=== PATIENT | female | born 1975 | race Hispanic/Latino ===

== ENCOUNTER 2018-08-18 18:48 | Observation (INO) | payer OTHER ==
[2018-08-18] MEDS ORDERED: Sodium Chloride 0.9% 1,000 ML IV ONE (19:33)
--- NOTE | 2018-08-18 19:33 | C.PDOC ---
History Of Present Illness 43 year old female presents to the ED c/o worsening chest discomfort since yesterday. Patient c/o on and off palpitations, mild chest pain. Patient also c/o dizziness and lightheadedness. Patient denies LOC, visual changes, neck pain , nausea, vomit, rash, SOB, weakness, numbness, injury, fall, trauma. Chief Complaint (Nursing): Weakness/Neurological Deficit History Per: Patient History/Exam Limitations: no limitations Onset/Duration Of Symptoms: Days Current Symptoms Are (Timing): Worse Associated Symptoms Preceding Syncopal Episode: Lightheadedness Seizure Or Post-ictal Symptoms: None Fall Associated With With Symptoms: No Severity: None Recent travel outside of the [place]: No Additional History Per: Patient Past Medical History Reviewed: Historical Data, Nursing Documentation, Vital Signs Vital Signs: Last Vital Signs Temp 97.9 F 08/18/18 19:28 Pulse 98 H 08/18/18 19:28 Resp 18 08/18/18 19:28 BP 174/93 H 08/18/18 19:28 Pulse Ox 98 08/18/18 19:28 - Medical History PMH: Anemia, Hypothyroidism Surgical History: No Surg Hx Family History: States: Unknown Family Hx - Social History Hx Alcohol Use: Yes Hx Substance Use: No - Immunization History Hx Tetanus Toxoid Vaccination: (unknown) Hx Influenza Vaccination: Yes Hx Pneumococcal Vaccination: No Review Of Systems Constitutional: Negative for: Fever, Chills Eyes: Negative for: Vision Change Cardiovascular: Positive for: Chest Pain, Palpitations Respiratory: Negative for: Cough, Shortness of Breath Gastrointestinal: Negative for: Nausea, Vomiting, Abdominal Pain Musculoskeletal: Negative for: Neck Pain Skin: Negative for: Rash Neurological: Positive for: Dizziness. Negative for: Weakness, Numbness, Headache Physical Exam - Physical Exam Appears: Non-toxic, No Acute Distress Skin: Normal Color, Warm, Dry Head: Atraumatic, Normacephalic Eye(s): bilateral: Normal Inspection, PERRL, EOMI Oral Mucosa: Moist Neck: Normal ROM, No Midline Cervical Tenderness, Supple Chest: Symmetrical Cardiovascular: Rhythm Regular Respiratory: Normal Breath Sounds, No Rales, No Rhonchi, No Wheezing Gastrointestinal/Abdominal: Soft, No Tenderness, No Distention Extremity: Normal ROM, No Tenderness, No Swelling Neurological/Psych: Oriented x3, Normal Speech, Normal Cognition, Other (no focal deficit) Gait: Steady ED Course And Treatment - Laboratory Results Result Diagrams: 08/18/18 19:41 08/18/18 19:41 O2 Sat by Pulse Oximetry: 98 (ON RA) Pulse Ox Interpretation: Normal - CT Scan/US CT head Other Rad Studies (CT/US): Read By Radiologist, Radiology Report Reviewed CT/US Interpretation: EXAM: CT Head Without IV contrast. CLINICAL HISTORY: Lightheadedness numbness of upper arm. TECHNIQUE: Axial computed tomography images of the head/brain without intravenous contrast. COMPARISON: None provided. FINDINGS: BRAIN: No acute intraparenchymal hemorrhage. No mass lesion. No CT evidence for acute territorial infarct. No midline shift or extra- axial collections. VENTRICLES: No hydrocephalus. ORBITS: The orbits are unremarkable. SINUSES AND MASTOIDS: The paranasal sinuses and mastoid air cells are clear. BONES: No fracture. SOFT TISSUES: Unremarkable. IMPRESSION: No acute intracranial abnormality. . Electronically signed on August 18, 2018 8:46:52 PM EDT by: Reji Penny M.D., M.B.A., Certified By [employer]. Fellowship Trained MRI and CT Specialist. Medical Decision Making Medical Decision Making: Plan: * CT head * EKG * Labs * CXR * IV fluids While in CT scan patient has another near syncopla episode, patient described it has palpitations and sweatiness. No focal deficits. Disposition Discussed With DrSamantha: Albert Carmona Doctor Will See Patient In The: Hospital Counseled Patient/Family Regarding: Diagnosis - Disposition Disposition: HOSPITALIZED Disposition Time: 21:16 Condition: STABLE Forms: [facility] (Tanzanian) - POA Present On Arrival: None - Clinical Impression Clinical Impression: Near syncope - Scribe Statement The provider has reviewed the documentation as recorded by the Scribe Samson Jeronimo All medical record entries made by the Scribe were at my direction and personally dictated by me. I have reviewed the chart and agree that the record accurately reflects my personal performance of the history, physical exam, medical decision making, and the department course for this patient. I have also personally directed, reviewed, and agree with the discharge instructions and disposition.
[2018-08-18 19:44] LABS: BASO # 0.1 K/uL (0.0-0.2); BASO % 0.6 % (0.0-2.0); EOS # 0.2 K/uL (0.0-0.7); EOS % 1.5 % (0.0-4.0); HEMOGLOBIN 10.4 g/dL (11.0-16.0); LYMPH # 2.6 K/uL (1.0-4.3); MEAN CELL VOLUME 78.2 fL (81.0-99.0); MEAN CORPUSCULAR HEMOGLOBIN 25.7 pg (27.0-31.0); MEAN CORPUSCULAR HGB CONC 32.8 g/dL (33.0-37.0); MEAN PLATELET VOLUME 7.6 fL (7.2-11.7); MONO # 0.5 K/uL (0.0-0.8); MONO % 4.8 % (0.0-10.0); NEUT # 7.1 K/uL (1.8-7.0); NEUT % 68.1 % (50.0-75.0); NRBC % 0.1 % (0.0-2.0); RBC 4.05 Mil/uL (3.80-5.20); RED CELL DISTRIBUTION WIDTH 15.4 % (11.5-14.5); WHITE BLOOD COUNT 10.4 K/uL (4.8-10.8)
[2018-08-18 19:59] LABS: ALB/GLOB RATIO 1.3 (1.0-2.1); ALBUMIN 4.5 g/dL (3.5-5.0); ALT/SGPT 24 U/L (9-52); AST/SGOT 23 U/L (14-36); BLOOD UREA NITROGEN 15 mg/dL (7-17); CALCIUM 9.7 mg/dl (8.6-10.4); GFR NON-AFRICAN AMERICAN > 60
[2018-08-18 20:28] LABS: T3 2.31 nmol/L (1.49-2.60)
--- NOTE | 2018-08-18 21:04 | PCM.RRT ---
BASE MANAGER Nurses Assessment - Situation Date: 08/18/18 Time BASE MANAGER was called: 20:41 BASE MANAGER Responder Arrival Time:: 20:41 BASE MANAGER Location:: CT BASE MANAGER Called By: Other Disciplines - IV IV Inserted during BASE MANAGER?: No - Respiratory BASE MANAGER Delivery Method: Room Air - Diagnostic Test Ordered EKG: No (ordered in ED) Chest X-Ray: No (ordered in ED) CT Scan: No (completed CT Head shows no intracranial abnormality) CPR started during BASE MANAGER?: No - Vital Signs Vital Signs: BP 178/105 HR 100 - Zina Coma Scale Coma Scale Eye Opening: Spontaneous Coma Scale Motor: Obeys Commands Movement Coma Scale Verbal: Oriented Coma Scale Total: 15 - Vital Signs at end of BASE MANAGER Vital Signs at end of BASE MANAGER: BP 169/106 - Recommendations 5) BASE MANAGER Level of Care Recommendations: Discharge to Emergency Room I.Reason for BASE MANAGER - A) Acute Change in Patient: (Select all that apply): Staff member or family is worried about patient Subjective: Patient reported return of symptoms that prompted her ED visit including dizziness, palpitations, difficulty breathing, tingling and weakness to left side. Patient is s/p CT head and while sitting in hallway in wheelchair reported complaints. BASE MANAGER called by staff. No reported syncopal event/LOC. Upon arrival patient was sitting in chair with rapid shallow breathing. VS revealed BP elevated @ 178/105. After further discussion patient reported improvement in breathing, decreased palpitations, and improvement in dizziness. - Neurological Status (Select all that apply): Alert, Responsive, Oriented, Verbal, Follows Commands - Respiratory Oxygen Delivery Method: Room Air - Constitutional Appears: Non-toxic, No Acute Distress - Head Head Exam: ATRAUMATIC, NORMAL INSPECTION, NORMOCEPHALIC - Eyes Eye Exam: EOMI, Normal appearance. absent: Nystagmus - Respiratory Exam Respiratory Exam: absent: Accessory Muscle Use, Respiratory Distress Additional comments: tachypneic - Cardiovascular Exam Cardiovascular Exam: Tachycardia, REGULAR RHYTHM - GI/Abdominal Exam GI & Abdominal Exam: Soft. absent: Distended - Neurological Exam Neurological Exam: Alert, Awake, Oriented x3 Additional exam: Patient appears anxious AAO x3 no facial droop speech normal 5/5 muscle strength UE/LE - Extremities Exam Extremities Exam: Normal Inspection. absent: Pedal Edema Plan - Assessment of Findings&Treatment Plan 43 year old female presenting to ED for evaluation of dizziness, palpitations, weakness and tingling; s/p BASE MANAGER for complaints of same symptoms after getting CT head -Hypertensive @ 178/105 -CT head: no intracranial abnormality -EKG and CXR performed in ED -patient reporting symptomatic improvement at BASE MANAGER end -stable for return to ED for further workup Discussed with Dr. Ortiz -Eneida Carrizales, PGY-1
--- NOTE | 2018-08-19 07:06 | CT ---
Date of service: 08/18/2018 PROCEDURE: CT HEAD WITHOUT CONTRAST. HISTORY: Lightness of head. Upper extremity numbness. COMPARISON: None available. TECHNIQUE: Axial computed tomography images were obtained through the head/brain without intravenous contrast. Radiation dose: Total exam DLP = 988.86 mGy-cm. This CT exam was performed using one or more of the following dose reduction techniques: Automated exposure control, adjustment of the mA and/or kV according to patient size, and/or use of iterative reconstruction technique. FINDINGS: HEMORRHAGE: No intracranial hemorrhage. BRAIN: No mass effect or edema. No atrophy or chronic microvascular ischemic changes. Punctate hypodensity in the right basal ganglia may represent a prominent perivascular space. Left basal ganglia calcification. VENTRICLES: Unremarkable. No hydrocephalus. CALVARIUM: Unremarkable. PARANASAL SINUSES: Unremarkable as visualized. No significant inflammatory changes. MASTOID AIR CELLS: Unremarkable as visualized. No inflammatory changes. OTHER FINDINGS: None. IMPRESSION: No acute intracranial abnormality. If symptoms persists, consider correlation with MRI. A preliminary report was generated at 8:46 p.m. on 08/18/[address] Reji Penny from [employer].
[2018-08-19] MEDS ORDERED: Potassium Chloride 20 mEq/15 ml LIQ UD PO ONE (08:30)
[2018-08-19] MEDS: Levothyroxine 75 MCG TAB PO SCH (09:21)
[2018-08-19] MEDS: Pantoprazole 40 mg EC Tab PO SCH (09:21)
[2018-08-19] MEDS ORDERED: Pneumococcal 23-Valent Vaccine IM ONE (10:00)
[2018-08-19] MEDS ORDERED: CONJUGATED ESTROGENS 1.25 MG PO SCH (10:00)
--- NOTE | 2018-08-19 10:41 | CP.PCM.CON ---
History of Present Illness - History of Present Illness History of Present Illness: PGY-1 Neurology consult note for Dr Pond Patient is a 43 year old female with pmhx of unspecified arrhythmia, hypothyroidism, pituitary microadenoma, borderline ovarian cancer s/p total hysterectomy, presents to the ED yesterday for near syncope. [place] she felt winded with flushed sensation on left side of her face, as well as tingling and numbness in her left arm and forearm, later extending to both arms and both legs. As the time progressed, patient started having chest tightness, palpitations, headaches, blurry vision, and continuing tingling and numbness including around lip area. Admits to sensation of doom. Patient states she has history of arrhythmia and often feels as her heart skips beats. Patient denies dizziness, syncope, fall or trauma to head or any side of the body. Patient had another episode of dizziness, palpitation, weakness and tingling after patient had a head CT, but shortly symptoms resolved. Patient states the tingling has improved, however, still feels tingling/numbness on both hands. Patient's dizziness, headaches, blurry vision, chest tightness has resolved. Denies fever, chills, chest pain, sob, hearing or speech impairment, difficulty with balance or ambulation, denies difficulty swallowing. 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 MedS: synthroid, hormonal therapy Past Patient History - Past Social History Smoking Status: Never Smoked - CARDIAC Other/Comment: arrhythmia - PULMONARY Hx Respiratory Disorders: No - ENDOCRINE/METABOLIC Hx Hypothyroidism: Yes - HEMATOLOGICAL/ONCOLOGICAL Hx Anemia: Yes - PSYCHIATRIC Hx Substance Use: No - SURGICAL HISTORY Hx Hysterectomy: Yes Other/Comment: knee sx - ANESTHESIA Hx Anesthesia: Yes Hx Anesthesia Reactions: No Meds Allergies/Adverse Reactions: Allergies Allergy/AdvReac Type Severity Reaction Status Date / Time No Known Allergies Allergy Verified 08/18/18 19:23 - Medications Medications: Current Medications Estrogens Conjugated (Premarin) 1.25 mg PO DAILY BRIANNE Ferrous Sulfate (Feosol) 325 mg PO DAILY BRIANNE Last Admin: 08/19/18 09:21 Dose: 325 mg Levothyroxine Sodium (Synthroid) 75 mcg PO 0630 [facility] Last Admin: 08/19/18 09:21 Dose: 75 mcg Pantoprazole Sodium (Protonix Ec Tab) 40 mg PO DAILY [facility] Last Admin: 08/19/18 09:21 Dose: 40 mg Physical Exam - Constitutional Appears: Non-toxic, No Acute Distress - Head Exam Head Exam: ATRAUMATIC, NORMAL INSPECTION, NORMOCEPHALIC - Eye Exam Eye Exam: EOMI, Normal appearance, PERRL Pupil Exam: NORMAL ACCOMODATION - ENT Exam ENT Exam: Mucous Membranes Moist, Normal Exam - Respiratory Exam Respiratory Exam: NORMAL BREATHING PATTERN - Extremities Exam Extremities exam: Positive for: full ROM - Neurological Exam Neurological exam: Alert, CN II-XII Intact, Normal Gait, Oriented x3, Reflexes Normal - Expanded Neurological Exam Expanded Patient oriented to: person, place, time Speech: Fluid Speech Cranial nerves: EOM's Intact: Normal, Facial Palsey w/Forehead Movement: Normal, Facial Palsey w/o Forehead Movement: Normal, Facial Sensation: Normal, Nystagmus: Normal, Tongue Deviation: Normal Ataxia: No Cerebellar Function: Finger to Nose: Normal, Romberg: Normal Upper motor neuron: Pronator Drift: Normal Sensory exam: Lower Extremity Light Touch: Normal, Upper Extremity Light Touch: Normal Neuro motor strength exam: Left Upper Extremity: 5, Right Upper Extremity: 5, Left Lower Extremity: 5, Right Lower Extremity: 5 DTR: Patellar Left: 2+, Patellar Right: 2+ - Psychiatric Exam Psychiatric exam: Normal Affect, Normal Mood - Skin Skin Exam: Dry, Normal Color Results - Vital Signs Recent Vital Signs: Last Vital Signs Temp 98.1 F 08/19/18 07:00 Pulse 76 08/19/18 07:10 Resp 20 08/19/18 07:00 BP 130/74 08/19/18 07:00 Pulse Ox 98 08/19/18 07:10 - Labs Result Diagrams: 08/18/18 19:41 08/18/18 19:41 Labs: Laboratory Results - last 24 hr 08/18/18 08/18/18 08/18/18 19:41 19:41 19:41 WBC 10.4 RBC 4.05 Hgb 10.4 L Hct 31.6 L MCV 78.2 L MCH 25.7 L MCHC 32.8 L RDW 15.4 H Plt Count 377 MPV 7.6 Neut % (Auto) 68.1 Lymph % (Auto) 25.0 Mcpherson % (Auto) 4.8 Eos % (Auto) 1.5 Baso % (Auto) 0.6 Neut # (Auto) 7.1 H Lymph # (Auto) 2.6 Mcpherson # (Auto) 0.5 Eos # (Auto) 0.2 Baso # (Auto) 0.1 D-Dimer, Quantitative < 200 Sodium 138 Potassium 3.5 L Chloride 99 Carbon Dioxide 24 Anion Gap 19 BUN 15 Creatinine 0.8 Est GFR ( Amer) > 60 Est GFR (Non-Af Amer) > 60 Random Glucose 92 Calcium 9.7 Total Bilirubin 0.3 AST 23 ALT 24 Alkaline Phosphatase 78 Troponin I < 0.0120 Total Protein 7.9 Albumin 4.5 Globulin 3.4 Albumin/Globulin Ratio 1.3 Free T4 Total T3 2.31 Urine HCG, Qual 08/18/18 08/18/18 19:48 20:37 WBC RBC Hgb Hct MCV MCH MCHC RDW Plt Count MPV Neut % (Auto) Lymph % (Auto) Mcpherson % (Auto) Eos % (Auto) Baso % (Auto) Neut # (Auto) Lymph # (Auto) Mcpherson # (Auto) Eos # (Auto) Baso # (Auto) D-Dimer, Quantitative Sodium Potassium Chloride Carbon Dioxide Anion Gap BUN Creatinine Est GFR ( Amer) Est GFR (Non-Af Amer) Random Glucose Calcium Total Bilirubin AST ALT Alkaline Phosphatase Troponin I Total Protein Albumin Globulin Albumin/Globulin Ratio Free T4 1.00 Total T3 Urine HCG, Qual Negative Assessment & Plan - Assessment and Plan (Free Text) Plan: Patient is 43 year old female presenting with near syncope with tingling/numbness left arm, radiating to right arm and bilateral leg, symptoms resolved at this time. CT head shows no intracranial abnormalities. thyroid panel within normal limits. Echo pending. Symptoms possibly related to anxiety/panic attacks, however will order brain MRI to r/o acute CVA. 1. Brain MRI w/o contrast 2. ordered Lipid panel, B12, B6, folate, vitamin D 3. continue management as per cardio and primary team Plan d/w Dr Dejah Mcfadden, PGY-1 - Date & Time Date: 08/19/18 Time: 10:00
--- NOTE | 2018-08-19 11:54 | CARD ---
APPROVED REPORT Date of service: 08/18/2018 EKG Measurement Heart [id number] <Conclusion> Normal sinus rhythm Minimal voltage criteria for LVH, may be normal variant Possible Inferior infarct, age undetermined Abnormal ECG
--- NOTE | 2018-08-19 12:14 | RAD ---
Date of service: 08/18/2018 HISTORY: chest pain COMPARISON: No prior. TECHNIQUE: Chest PA and lateral views FINDINGS: LUNGS: No active pulmonary disease. PLEURA: No significant pleural effusion identified. No pneumothorax apparent. CARDIOVASCULAR: No aortic atherosclerotic calcification present. Normal cardiac size. No pulmonary vascular congestion. OSSEOUS STRUCTURES: No significant abnormalities. VISUALIZED UPPER ABDOMEN: Normal. OTHER FINDINGS: None. IMPRESSION: No active disease.
[2018-08-19] MEDS ORDERED: Iodixanol 320 MG/ML 100 ML BOTTLE IV ONE (14:12)
--- NOTE | 2018-08-19 16:00 | CT ---
Date of service: 08/19/2018 PROCEDURE: CT Chest with contrast (Pulmonary Angiogram) HISTORY: Near syncopal event. Pulmonary embolism suspected. Negative test (concurrent with this examination). COMPARISON: None available. TECHNIQUE: Axial computed tomography images were obtained of the chest in the pulmonary arterial phase of enhancement. Coronal and sagittal reformatted images were created and reviewed. Intravenous contrast dose: 100 cc Visipaque 320. Mean Hounsfield value in the main pulmonary artery: 125.67 Radiation dose: Total exam DLP = 588.39 mGy-cm. This CT exam was performed using one or more of the following dose reduction techniques: Automated exposure control, adjustment of the mA and/or kV according to patient size, and/or use of iterative reconstruction technique. FINDINGS: PULMONARY ARTERIES: Unremarkable. No pulmonary embolism. AORTA: No acute findings. No thoracic aortic aneurysm. No atherosclerotic calcification or mural plaque present. LUNGS: Unremarkable. No nodule, mass or pulmonary consolidation. PLEURAL SPACES: Unremarkable. No effusion or pneumothorax. HEART: Unremarkable. No cardiomegaly. No significant pericardial effusion. LYMPH NODES: No lymphadenopathy. BONES, CHEST WALL: Unremarkable. No fracture or destructive lesion OTHER FINDINGS: Cholelithiasis without CT evidence of acute cholecystitis. IMPRESSION: Unremarkable CT pulmonary angiogram. No large or central pulmonary embolus.Limitations of the current examination: Poor opacification of the pulmonary arterial system precludes assessment for pulmonary emboli at and beyond the segmental level
--- NOTE | 2018-08-19 17:46 | CARD ---
APPROVED REPORT Date of service: 08/19/2018 EXAM: Two-dimensional and M-mode echocardiogram with Doppler and color Doppler. Other Information Quality : GoodRhythm : INDICATION Dyspnea Chest Pain Syncope Palpitations 2D DIMENSIONS IVSd0.9 (0.7-1.1cm)LVDd4.6 (3.9-5.9cm) PWd0.9 (0.7-1.1cm)LA [id number] (18-58mL) LVDs2.9 (2.5-4.0cm)FS (%) 37.6 % LVEF (%)67.7 (>50%)LVEF (Borrego's)67.64 % M-Mode DIMENSIONS Left Atrium (MM)3.41 (2.5-4.0cm)IVSd0.88 (0.7-1.1cm) Aortic Root3.08 (2.2-3.7cm)LVDd4.48 (4.0-5.6cm) Aortic Cusp Exc.2.21 (1.5-2.0cm)PWd0.70 (0.7-1.1cm) FS (%) 31 %LVDs3.08 (2.0-3.8cm) LVEF (%)59 (>50%) Mitral Valve MV E Jqvtmzck01.5cm/sMV A Hggxtjmt92.6cm/sE/A ratio1.0 TDI Lateral E' Peak V14.24cm/sMedial E' Peak V10.81cm/sE/Lateral E'4.7 E/Medial E'6.2 LEFT VENTRICLE The left ventricle is normal size. There is normal left ventricular wall thickness. Left ventricle systolic function is normal. The Ejection Fraction is 65-70%. There is normal LV segmental wall motion. The left ventricular diastolic function is normal. There is no ventricular septal defect visualized. RIGHT VENTRICLE The right ventricle is normal size. The right ventricular systolic function is normal. ATRIA The left atrium size is normal. The right atrium size is normal. AORTIC VALVE The aortic valve is mildly sclerotic. The aortic valve is tri-cuspid. There is trace aortic regurgitation. There is no aortic valvular stenosis. MITRAL VALVE The mitral valve is normal in structure. There is no evidence of mitral valve prolapse. There is no mitral valve regurgitation noted. TRICUSPID VALVE The tricuspid valve is normal in structure. There is trace tricuspid regurgitation. Right ventricular systolic pressure is estimated at less than 30 mmHg. There is no pulmonary hypertension. PULMONIC VALVE The pulmonic valve is not well visualized. There is trace pulmonic valvular regurgitation. GREAT VESSELS The aortic root is normal in size. The ascending aorta is normal in size. The IVC is normal in size and collapses >50% with inspiration. PERICARDIAL EFFUSION There is no pericardial effusion. <Conclusion> Left ventricle systolic function is normal. The Ejection Fraction is 65-70%. The left ventricular diastolic function is normal. There is trace aortic regurgitation.
--- NOTE | 2018-08-19 18:00 | MRI ---
Date of service: 08/19/2018 PROCEDURE: MRI BRAIN WITHOUT CONTRAST HISTORY: near syncope, left arm tingling/numbness COMPARISON: CT head without contrast from 08/18/2018 TECHNIQUE: Multiplanar, multisequence MR images of the brain were obtained without intravenous contrast enhancement. FINDINGS: HEMORRHAGE: None DWI: No evidence of an acute or early subacute infarction. BRAIN PARENCHYMA: Cordova-white matter differentiation is preserved. There is no mass, mass effect or abnormal extra-axial fluid collection. There is no territorial infarction. The midline sagittal structures are normal. VENTRICLES: Unremarkable. No hydrocephalus. CRANIUM: There is normal bone marrow signal pattern. ORBITS: Grossly unremarkable. PARANASAL SINUSES/MASTOIDS: There is mild mucosal thickening in the paranasal sinuses. The mastoid air cells are clear. VASCULAR SYSTEM: There are normal signal voids in the larger intracranial arteries. OTHER FINDINGS: None. IMPRESSION: No acute intracranial abnormality.
[2018-08-19 19:16] LABS: BARBITURATES, UR NEGATIVE (NEGATIVE); BENZODIAZEPINES, UR NEGATIVE (NEGATIVE); OPIATES, UR NEGATIVE (NEGATIVE); PHENCYCLIDINE, UR NEGATIVE (NEGATIVE)
[2018-08-20 00:33] VITALS: RESP 20
[2018-08-20] MEDS: Levothyroxine 75 MCG TAB PO SCH (05:37)
--- NOTE | 2018-08-20 05:39 | CON ---
DATE: 08/19/2018 CARDIOLOGY CONSULTATION REASON FOR CONSULTATION: Dizziness and near-syncope. HISTORY OF PRESENT ILLNESS: The patient is a 43-year-old female who has no significant past medical history except for history of minor arrhythmia for which she was evaluated 10 years ago by a bed rubber in [place] where she lived and was told not to worry about it. The patient presented because of dizziness and near-syncope. The patient stated that she was not feeling well all day Friday and when she decided to go to work yesterday and as she was driving she felt some numbness on the left side of her body and dizziness. Eventually, the patient had to park her car and call 911, in which she was brought to the emergency room and her was able to take her car from the street. In the hospital, the patient did experience worsening of her numbness which spread to all four extremities including both side of the face. The patient denies any limb weakness or speech difficulty. The patient denies any anxiety or hyperventilation prior to that. She did describe what she thought that her heart would jump out of her chest and she did report palpitation. The patient denies any recent fever, chills, nausea or vomiting. The patient denies passing out completely. SOCIAL HISTORY: Nonsmoker, nondrinker. PAST MEDICAL HISTORY: History of hysterectomy 15 years ago for what she was told a low-grade malignancy. MEDICATIONS: Feosol one table once a day, Premarin 1.25 mg orally daily, Protonix 40 mg once a day, Synthroid 75 mcg daily. PHYSICAL EXAMINATION: GENERAL: The patient is middle-aged female who does not appear to be in any distress. VITAL SIGNS: Blood pressure 130/74, heart rate 79, temperature 98.1, respirations 20. HEENT: Normocephalic. CHEST: Clear. HEART: S1, S2. Regular. ABDOMEN: Soft. EXTREMITIES: No edema. LABORATORY DATA: Hemoglobin and hematocrit 10.4 and 31.6, white count 10.4, platelet count 337,000. Admitting SMA-7: Sodium 138, potassium 3.5, chloride 99, CO2 of 24, glucose 92, BUN 15, creatinine 0.8. One set of troponin is negative. Free T4 and total T3 are within normal limit. D-dimer is within normal limit. Urine test is negative. EKG revealed normal sinus rhythm at the rate of 95, minimal voltage criteria for LVH, possible inferior infarct, age indeterminate. Review of Holter monitor revealed periods of sinus tachycardia, the highest was about 125 beats per minute. Head CT scan without contrast, no acute intracranial abnormality. Chest x-ray was unremarkable. ASSESSMENT: 1. Dizziness and near-syncope with periods of sinus tachycardia, rule out vasovagal episode. 2. Rule out dehydration. 3. Mild hypokalemia. 4. Hypertension. 5. Rule out transient ischemic attack. 6. Hypothyroidism. RECOMMENDATIONS: The patient did receive potassium chloride replacement 20 mEq today for her hypokalemia, continue current Synthroid, Premarin and Feosol. I will obtain Chest CT Angio and venous Doppler of the lower extremities and review the echocardiographic study performed today. Terry Lima MD MTDRodney
[2018-08-20 07:17] LABS: HDL CHOLESTEROL 63 mg/dL (30-70)
[2018-08-20 07:29] LABS: LDL CHOLESTEROL 119 mg/dL (0-129)
[2018-08-20 07:52] VITALS: BP 110/68; TEMP 98.2; O2SAT 97
--- NOTE | 2018-08-20 08:27 | HP ---
HISTORY OF PRESENT ILLNESS: This is a 43-year-old female with past medical history of possible cardiac arrhythmia, hypothyroidism, pituitary macroadenoma, borderline ovarian cancer, status post total hysterectomy and oophorectomy, currently on hormone-replacement therapy. The patient presented to emergency room for symptoms of left upper extremity numbness and near syncope. [place] prior to admission when she felt shortness of breath with flushed sensation on the left side of her face as well as tingling and numbness of her left arm. During that time, symptoms progressed and the patient started having chest tightness, palpitations, headache, blurry vision and continuing tingling and numbness including around the lip area. The patient had sensation of doom. The patient stated that she had history of arrhythmia and often feels as her heart skips a beat. The patient denies dizziness, syncope, fall or trauma, or tendency to fall at any side. The patient had another episode of dizziness, palpitations, weakness and tingling after the patient had the CAT scan in the emergency room, but shortly symptoms resolved. The patient stated that her symptoms improved, however, still feeling numbness on both hands. The patient's dizziness, headache, blurry vision, chest tightness has resolved at the time of this examination. The patient denies fever, chills, shortness of breath, nausea, vomiting. Other review of systems is negative. ALLERGIES: NO KNOWN ALLERGIES. MEDICATIONS: Reviewed as per MAR and ordered. PAST MEDICAL HISTORY: As above. SOCIAL HISTORY: No history of smoking, ETOH or substance abuse. FAMILY HISTORY: Noncontributory. PHYSICAL EXAMINATION: GENERAL: The patient is not in any cardiopulmonary distress. VITAL SIGNS: Blood pressure 130/70, temperature 98.2, respiratory rate 18 and pulse 86. HEENT: Pupils equal, reactive to light. Normal-appearing mucosa of the conjunctivae, oropharynx and nasal membrane mucosa. NECK: Supple. No JVD, no carotid bruit. No lymph node. No thyromegaly. CHEST AND LUNGS: Bilateral symmetrical expansion. Good air exchange. No rales, no rhonchi. CARDIOVASCULAR SYSTEM: PMI not localized. S1, S2. No additional sounds. ABDOMEN: Normoactive bowel sounds. No tenderness, no organomegaly. No masses. EXTREMITIES: No cyanosis, no clubbing, no edema. CENTRAL NERVOUS SYSTEM: Alert, awake, oriented x3. No neurological deficits could be appreciated. ASSESSMENT: A 43-year-old female with near syncope and tingling and numbness of both upper extremity, left more than right. CAT scan of the head did not show any interval abnormalities. Thyroid panel within normal. Symptoms possibly related to anxiety/panic attack; however, follow Neurology and Cardiology recommendations. Resume the patient's home medications. [facility] MD Mathew
[2018-08-20 08:29] LABS: FOLATE 8.8 ng/mL
[2018-08-20 08:35] VITALS: PULSE 64
[2018-08-20] MEDS: Pantoprazole 40 mg EC Tab PO SCH (09:31)
--- NOTE | 2018-08-20 11:31 | CP.PCM.PN ---
<Jose Mcfadden - Last Filed: 08/20/18 15:11> Subjective - Date & Time of Evaluation Date of Evaluation: 08/20/18 Time of Evaluation: 10:30 - Subjective Subjective: PGY-1 Neurology progress note for Dr Pond Patient is seen and examined at bedside. No acute events overnight reported. Patient admits to headaches that come and go. States tingling and numbness sensation in upper extremities have resolved. Denies dizziness, weakness in extremities, blurry vision. Patient is ambulating with no difficulty and eating well. Denies any syncope or falls. no fever, chills, sob, chest pain. Objective - Vital Signs/Intake and Output Vital Signs (last 24 hours): Temp Pulse Resp BP Pulse Ox 98.2 F 64 20 110/68 97 08/20/18 07:51 08/20/18 08:00 08/20/18 07:51 08/20/18 07:51 08/20/18 08:00 - Medications Medications: Current Medications Acetaminophen (Tylenol 325mg Tab) 650 mg PO Q6 PRN PRN Reason: Headache Last Admin: 08/20/18 05:39 Dose: 650 mg Estrogens Conjugated (Premarin) 1.25 mg PO DAILY [facility] Ferrous Sulfate (Feosol) 325 mg PO DAILY [facility] Last Admin: 08/20/18 09:31 Dose: 325 mg Levothyroxine Sodium (Synthroid) 75 mcg PO 0630 [facility] Last Admin: 08/20/18 05:37 Dose: 75 mcg Pantoprazole Sodium (Protonix Ec Tab) 40 mg PO DAILY [facility] Last Admin: 08/20/18 09:31 Dose: 40 mg - Labs Labs: 08/18/18 19:41 08/18/18 19:41 - Constitutional Appears: Non-toxic, No Acute Distress - Head Exam Head Exam: ATRAUMATIC, NORMAL INSPECTION, NORMOCEPHALIC - Eye Exam Eye Exam: EOMI, Normal appearance, PERRL Pupil Exam: NORMAL ACCOMODATION, PERRL - ENT Exam ENT Exam: Mucous Membranes Moist - Neck Exam Neck Exam: Full ROM - Respiratory Exam Respiratory Exam: NORMAL BREATHING PATTERN - Neurological Exam Neurological Exam: Alert, Awake, CN II-XII Intact, Oriented x3, Reflexes Normal. absent: Motor Sensory Deficit Neuro motor strength exam: Left Upper Extremity: 5, Right Upper Extremity: 5, Left Lower Extremity: 5, Right Lower Extremity: 5 - Psychiatric Exam Psychiatric exam: Normal Affect, Normal Mood Assessment and Plan - Assessment and Plan (Free Text) Plan: 43 year old female evaluated for near syncope, tingling/numbness on upper extremities, dizziness. Symptoms have resolved at this time. CT head, CTA unremarkable, Brain MRI shows no acute IC abnormalities. Labs including thyroid, lipid panel, vitamin workup within normal limits. Echo report shows EF 65-70%. Patient symptoms most likely 2/2 panic attack/anxiety. Patient stable to d/c from neurological standpoint. Neurology will sign off at this time, please reconsult as needed. Plan d/w Dr Dejah Mcfadden, PGY-1 <Ajit Pond - Last Filed: 08/21/18 18:54> Objective - Vital Signs/Intake and Output Vital Signs (last 24 hours): Temp Pulse Resp BP Pulse Ox 98.2 F 64 20 110/68 97 08/20/18 07:51 08/20/18 08:00 08/20/18 07:51 08/20/18 07:51 08/20/18 12:00 - Labs Labs: 08/18/18 19:41 08/18/18 19:41 Attending/Attestation - Attestation I have personally seen and examined this patient.: Yes I have fully participated in the care of the patient.: Yes I have reviewed all pertinent clinical information, including history, physical exam and plan: Yes Notes (Text): I agree with the assessment and plan as outlined above.
--- NOTE | 2018-08-20 15:42 | CP.PCM.PN ---
Subjective - Date & Time of Evaluation Date of Evaluation: 08/20/18 Time of Evaluation: 15:42 - Subjective Subjective: PATIENT SEEN AND EXAMINED AT THE BEDSIDE Objective - Vital Signs/Intake and Output Vital Signs (last 24 hours): Temp Pulse Resp BP Pulse Ox 98.2 F 64 20 110/68 97 08/20/18 07:51 08/20/18 08:00 08/20/18 07:51 08/20/18 07:51 08/20/18 12:00 - Medications Medications: Current Medications Acetaminophen (Tylenol 325mg Tab) 650 mg PO Q6 PRN PRN Reason: Headache Last Admin: 08/20/18 05:39 Dose: 650 mg Estrogens Conjugated (Premarin) 1.25 mg PO DAILY [facility] Ferrous Sulfate (Feosol) 325 mg PO DAILY [facility] Last Admin: 08/20/18 09:31 Dose: 325 mg Levothyroxine Sodium (Synthroid) 75 mcg PO 0630 [facility] Last Admin: 08/20/18 05:37 Dose: 75 mcg Pantoprazole Sodium (Protonix Ec Tab) 40 mg PO DAILY [facility] Last Admin: 08/20/18 09:31 Dose: 40 mg Rosuvastatin Calcium (Crestor) 10 mg PO HS [facility] - Labs Labs: 08/18/18 19:41 08/18/18 19:41 Assessment and Plan - Assessment and Plan (Free Text) Assessment: FOLLOW UP WITH DR DIAZ IN HIS OFFICE ---CALL FOR APPOINTMENT CONTINUE HOME MEDICATION NEW PRESCRIPTION GIVEN CRESTOR 10 MG PO DAILY [facility] CALL DR DIAZ OR GO TO THE EMERGENCY ROOM IF SYMPTOM RETURN OR WORSENING
--- NOTE | 2018-08-20 18:49 | PN ---
DATE: 08/20/2018 SUBJECTIVE: The patient denies any dizziness, palpitation, or shortness of breath. The patient has admitted to receiving Trulance as [id number] medication, which may have given her diarrhea. PHYSICAL EXAMINATION: VITAL SIGNS: Blood pressure 110/68, heart rate 66, temperature 98.2, respirations 20. The patient is in sinus rhythm on the monitor. HEENT: Normocephalic. CHEST: Clear. HEART: S1 and S2, regular. ABDOMEN: Soft. EXTREMITIES: No edema. No calf tenderness. LABORATORY DATA: Today's triglycerides 208, total cholesterol 216. Urine drug screen is negative. Venous Doppler of lower extremity, no evidence of DVT. Echocardiographic study revealed normal left ventricular systolic function and normal diastolic function with trace aortic insufficiency. Brain MRI, no acute intracranial abnormality. Chest CT angio, unremarkable CT pulmonary angiogram. No large central pulmonary embolus. Limitations of the current examination. Poor opacification of the pulmonary arterial system precludes assessment for pulmonary emboli at and beyond the segmental level. TSH level: T3 and T4 are all within normal limit. ASSESSMENT: 1. Near-syncopal episode. 2. Dehydration most likely related to the patient's [id number] use . 3. Hyperlipidemia. 4. History of ovarian carcinoma status post panhysterectomy some 15 years ago. 5. Hypothyroidism, which is currently controlled. RECOMMENDATIONS: Discontinue telemetry. Continue Synthroid 75 mcg once a day. Start Crestor at 10 mg once a day. No further cardiac workup is indicated at this time. Terry Lima MD
--- NOTE | 2018-08-21 13:07 | VASCLAB ---
Date of service: 08/19/2018 PROCEDURE: Lower Extremity Venous Duplex Exam. HISTORY: r/o DVT PRIORS: None. TECHNIQUE: Bilateral common femoral, femoral, popliteal and posterior tibial, peroneal and great saphenous veins were evaluated. Flow was assessed with color Doppler, compressibility, assessment of phasic flow and augmentation response. Report prepared by Sylvester Negrete, BS, RVT FINDINGS: RIGHT: 1. Common Femoral Vein: 1.1. Compressibility - Fully compressible: Thrombus - None : Flow - Phasic: Augmentation -Normal: Reflux - None. 2. Femoral Vein: 2.1. Compressibility - Fully compressible: Thrombus - None : Flow - Phasic: Augmentation -Normal: Reflux - None. 3. Popliteal Vein: 3.1. Compressibility - Fully compressible: Thrombus - None : Flow - Phasic: Augmentation -Normal: Reflux - None. 4. Posterior Tibial Vein: 4.1. Compressibility - Fully compressible: Thrombus - None: Flow - Phasic: Augmentation -Normal: Reflux - None. 5. Peroneal Vein: 5.1. Compressibility - Fully compressible: Thrombus - None: Flow - Phasic: Augmentation -Normal: Reflux - None. 6. Great Saphenous Vein: 6.1. Compressibility - Fully compressible: Thrombus - None: Flow - Phasic: Augmentation - Normal: Reflux - None. LEFT: 1. Common Femoral Vein: 1.1. Compressibility - Fully compressible: Thrombus - None: Flow - Phasic: Augmentation -Normal: Reflux - None. 2. Femoral Vein: 2.1. Compressibility - Fully compressible: Thrombus - None: Flow - Phasic: Augmentation -Normal: Reflux - None. 3. Popliteal Vein: 3.1. Compressibility - Fully compressible: Thrombus - None : Flow - Phasic: Augmentation -Normal: Reflux - None. 4. Posterior Tibial Vein: 4.1. Compressibility - Fully compressible: Thrombus - None: Flow - Phasic: Augmentation -Normal: Reflux - None. 5. Peroneal Vein: 5.1. Compressibility - Fully compressible: Thrombus - None: Flow - Phasic: Augmentation -Normal: Reflux - None. 6. Great Saphenous Vein: 6.1. Compressibility - Fully compressible: Thrombus - None: Flow - Phasic: Augmentation - Normal: Reflux - None. OTHER FINDINGS: Right: None significant. Left: None significant. IMPRESSION: Right: No evidence of deep or superficial vein thrombosis of the right lower extremity. Normal valve function noted of the right side. Left: No evidence of deep or superficial vein thrombosis of the left lower extremity. Normal valve function noted of the left side.
== END 2018-08-20 16:20 | disposition home or self-care (01) ==
LOC: C.ER 18:48 → C.6T 21:17
PROVIDERS: ADMIT Internal Medicine; ATTEND Internal Medicine
DX: R55 Syncope and collapse (principal); E86.0 Dehydration; E78.5 Hyperlipidemia, unspecified; E03.9 Hypothyroidism, unspecified; E87.6 Hypokalemia; I10 Essential (primary) hypertension
CPT/HCPCS: 36415; 70450; 70551; 71046; 71275; 80053; 80061; 80324; 80345; 80346; 80349; 80353; 80358; 80361; 82306; 82607; 82746; 83992; 84378; 84439; 84443; 84480; 84484; 84703; 85025; 85378; 90471; 90732; 93005; 93306; 93970; 96374; 99285; G0378; J2060; J7030; Q9967